=== PATIENT | male | born 1960 | race Caucasian/White ===

== ENCOUNTER → 2021-03-02 | Outpatient (CLI) | payer OTHER | LOC: WOUNDCARE 09:59 | PROVIDERS: ATTEND Surgery | DX: E11.622 Type 2 diabetes mellitus with other skin ulcer (principal); I87.331 Chronic venous hypertension (idiopathic) with ulcer and inflammation of right lower extremity; I89.0 Lymphedema, not elsewhere classified; L97.212 Non-pressure chronic ulcer of right calf with fat layer exposed; I70.232 Atherosclerosis of native arteries of right leg with ulceration of calf; E66.01 Morbid (severe) obesity due to excess calories; Z68.41 Body mass index [BMI] 40.0-44.9, adult | CPT/HCPCS: 11042; A6260; G0463 ==

== ENCOUNTER → 2021-03-06 | Outpatient (CLI) | payer OTHER ==
[2021-03-06 09:03] LABS: BASOPHILS # (AUTO) 0.1 10^3/uL (0.0-0.1); BASOPHILS % (AUTO) 1 % (0-10); EOSINOPHILS # (AUTO) 0.4 10^3/uL (0.0-0.3); EOSINOPHILS % (AUTO) 5 % (0-10); HEMATOCRIT 48 % (40-54); HEMOGLOBIN 15.8 g/dL (13.3-17.7); LYMPHOCYTES % (AUTO) 28 % (12-44); MEAN CORPUSCULAR HEMOGLOBIN 31 pg (25-34); MEAN CORPUSCULAR HGB CONC 33 g/dL (32-36); MEAN CORPUSCULAR VOLUME 92 fL (80-99); MEAN PLATELET VOLUME 9.6 fL (9.0-12.2); MONOCYTES # (AUTO) 0.5 10^3/uL (0.0-1.0); MONOCYTES % (AUTO) 7 % (0-12); NEUTROPHILS # (AUTO) 4.1 10^3/uL (1.8-7.8); NEUTROPHILS % (AUTO) 58 % (42-75); PLATELET COUNT 296 10^3/uL (130-400); WHITE BLOOD COUNT 7.1 10^3/uL (4.3-11.0)
[2021-03-06 09:30] LABS: BILIRUBIN,TOTAL 0.3 MG/DL (0.1-1.0); CALCIUM 9.9 MG/DL (8.5-10.1); CREATININE SERUM 0.75 MG/DL (0.60-1.30); TOTAL PROTEIN 7.7 GM/DL (6.4-8.2)
== END ==
LOC: LAB 08:33
PROVIDERS: ATTEND Surgery
DX: E11.622 Type 2 diabetes mellitus with other skin ulcer (principal); I87.331 Chronic venous hypertension (idiopathic) with ulcer and inflammation of right lower extremity; I89.0 Lymphedema, not elsewhere classified; L97.212 Non-pressure chronic ulcer of right calf with fat layer exposed; I70.232 Atherosclerosis of native arteries of right leg with ulceration of calf; E66.01 Morbid (severe) obesity due to excess calories
CPT/HCPCS: 36415; 80053; 83036; 85025

== ENCOUNTER → 2021-03-11 | Outpatient (CLI) | payer OTHER | LOC: WOUNDCARE 09:57 | PROVIDERS: ATTEND Surgery | DX: E11.622 Type 2 diabetes mellitus with other skin ulcer (principal); I87.331 Chronic venous hypertension (idiopathic) with ulcer and inflammation of right lower extremity; I89.0 Lymphedema, not elsewhere classified; L97.212 Non-pressure chronic ulcer of right calf with fat layer exposed; E66.01 Morbid (severe) obesity due to excess calories; E11.52 Type 2 diabetes mellitus with diabetic peripheral angiopathy with gangrene | CPT/HCPCS: 11042; A6253; G0463 ==

== ENCOUNTER → 2021-03-16 | Outpatient (CLI) | payer OTHER | LOC: WOUNDCARE 08:11 | PROVIDERS: ATTEND Surgery | DX: E11.621 Type 2 diabetes mellitus with foot ulcer (principal); I96 Gangrene, not elsewhere classified; I89.0 Lymphedema, not elsewhere classified; I10 Essential (primary) hypertension | CPT/HCPCS: 99212 ==

== ENCOUNTER → 2021-03-20 | Outpatient (CLI) | payer OTHER | LOC: WOUNDCARE 09:13 | PROVIDERS: ATTEND Surgery | DX: E11.622 Type 2 diabetes mellitus with other skin ulcer (principal); I87.331 Chronic venous hypertension (idiopathic) with ulcer and inflammation of right lower extremity; I89.0 Lymphedema, not elsewhere classified; L97.212 Non-pressure chronic ulcer of right calf with fat layer exposed; E66.01 Morbid (severe) obesity due to excess calories; E11.52 Type 2 diabetes mellitus with diabetic peripheral angiopathy with gangrene | CPT/HCPCS: 11042; G0463 ==

== ENCOUNTER → 2021-03-27 | Outpatient (CLI) | payer OTHER | LOC: WOUNDCARE 08:47 | PROVIDERS: ATTEND Surgery | DX: E11.622 Type 2 diabetes mellitus with other skin ulcer (principal); E11.52 Type 2 diabetes mellitus with diabetic peripheral angiopathy with gangrene; I87.331 Chronic venous hypertension (idiopathic) with ulcer and inflammation of right lower extremity; I89.0 Lymphedema, not elsewhere classified; L97.212 Non-pressure chronic ulcer of right calf with fat layer exposed; E66.01 Morbid (severe) obesity due to excess calories; Z68.41 Body mass index [BMI] 40.0-44.9, adult | CPT/HCPCS: 11042; G0463 ==

== ENCOUNTER → 2021-03-30 | Outpatient (CLI) | payer OTHER | LOC: WOUNDCARE 13:30 | PROVIDERS: ATTEND Family Medicine | DX: I87.331 Chronic venous hypertension (idiopathic) with ulcer and inflammation of right lower extremity (principal); E11.621 Type 2 diabetes mellitus with foot ulcer; E11.52 Type 2 diabetes mellitus with diabetic peripheral angiopathy with gangrene | CPT/HCPCS: 29581; G0463 ==

== ENCOUNTER → 2021-04-03 | Outpatient (CLI) | payer OTHER | LOC: WOUNDCARE 08:48 | PROVIDERS: ATTEND Family Medicine | DX: E11.622 Type 2 diabetes mellitus with other skin ulcer (principal); E11.52 Type 2 diabetes mellitus with diabetic peripheral angiopathy with gangrene; I87.331 Chronic venous hypertension (idiopathic) with ulcer and inflammation of right lower extremity; I89.0 Lymphedema, not elsewhere classified; L97.212 Non-pressure chronic ulcer of right calf with fat layer exposed; E66.01 Morbid (severe) obesity due to excess calories; Z68.41 Body mass index [BMI] 40.0-44.9, adult | CPT/HCPCS: 11042; G0463 ==

== ENCOUNTER → 2021-04-06 | Outpatient (CLI) | payer OTHER | LOC: WOUNDCARE 15:25 | PROVIDERS: ATTEND Family Medicine | DX: I87.331 Chronic venous hypertension (idiopathic) with ulcer and inflammation of right lower extremity (principal); E11.621 Type 2 diabetes mellitus with foot ulcer; E11.52 Type 2 diabetes mellitus with diabetic peripheral angiopathy with gangrene | CPT/HCPCS: 29581; G0463 ==

== ENCOUNTER → 2021-04-10 | Outpatient (CLI) | payer OTHER | LOC: WOUNDCARE 08:50 | PROVIDERS: ATTEND Family Medicine | DX: E11.622 Type 2 diabetes mellitus with other skin ulcer (principal); I87.331 Chronic venous hypertension (idiopathic) with ulcer and inflammation of right lower extremity; I89.0 Lymphedema, not elsewhere classified; L97.212 Non-pressure chronic ulcer of right calf with fat layer exposed; E66.01 Morbid (severe) obesity due to excess calories; E11.65 Type 2 diabetes mellitus with hyperglycemia; E11.52 Type 2 diabetes mellitus with diabetic peripheral angiopathy with gangrene | CPT/HCPCS: 11042; G0463 ==

== ENCOUNTER → 2021-04-14 | Outpatient (CLI) | payer OTHER | LOC: WOUNDCARE 14:46 | PROVIDERS: ATTEND Family Medicine | DX: I87.331 Chronic venous hypertension (idiopathic) with ulcer and inflammation of right lower extremity (principal); E11.621 Type 2 diabetes mellitus with foot ulcer; E11.52 Type 2 diabetes mellitus with diabetic peripheral angiopathy with gangrene | CPT/HCPCS: 29581; G0463 ==

== ENCOUNTER → 2021-04-17 | Outpatient (CLI) | payer OTHER | LOC: WOUNDCARE 08:54 | PROVIDERS: ATTEND Family Medicine | DX: E11.622 Type 2 diabetes mellitus with other skin ulcer (principal); E11.52 Type 2 diabetes mellitus with diabetic peripheral angiopathy with gangrene; I87.331 Chronic venous hypertension (idiopathic) with ulcer and inflammation of right lower extremity; I89.0 Lymphedema, not elsewhere classified; L97.212 Non-pressure chronic ulcer of right calf with fat layer exposed; E66.01 Morbid (severe) obesity due to excess calories; E11.65 Type 2 diabetes mellitus with hyperglycemia; Z68.41 Body mass index [BMI] 40.0-44.9, adult | CPT/HCPCS: 11042; G0463 ==

== ENCOUNTER → 2021-04-20 | Outpatient (CLI) | payer OTHER | LOC: WOUNDCARE 15:15 | PROVIDERS: ATTEND Family Medicine | DX: I87.331 Chronic venous hypertension (idiopathic) with ulcer and inflammation of right lower extremity (principal); E11.621 Type 2 diabetes mellitus with foot ulcer; E11.52 Type 2 diabetes mellitus with diabetic peripheral angiopathy with gangrene | CPT/HCPCS: 29581; G0463 ==

== ENCOUNTER → 2021-04-24 | Outpatient (CLI) | payer OTHER | LOC: WOUNDCARE 08:48 | PROVIDERS: ATTEND Family Medicine | DX: E11.622 Type 2 diabetes mellitus with other skin ulcer (principal); I87.331 Chronic venous hypertension (idiopathic) with ulcer and inflammation of right lower extremity; I89.0 Lymphedema, not elsewhere classified; L97.212 Non-pressure chronic ulcer of right calf with fat layer exposed; E66.01 Morbid (severe) obesity due to excess calories; E11.65 Type 2 diabetes mellitus with hyperglycemia; E11.52 Type 2 diabetes mellitus with diabetic peripheral angiopathy with gangrene | CPT/HCPCS: 11042; G0463 ==

== ENCOUNTER → 2021-05-01 | Outpatient (CLI) | payer OTHER | LOC: WOUNDCARE 09:06 | PROVIDERS: ATTEND Family Medicine | DX: E11.622 Type 2 diabetes mellitus with other skin ulcer (principal); I87.331 Chronic venous hypertension (idiopathic) with ulcer and inflammation of right lower extremity; I89.0 Lymphedema, not elsewhere classified; L97.212 Non-pressure chronic ulcer of right calf with fat layer exposed; E66.01 Morbid (severe) obesity due to excess calories; E11.65 Type 2 diabetes mellitus with hyperglycemia; E11.52 Type 2 diabetes mellitus with diabetic peripheral angiopathy with gangrene | CPT/HCPCS: 11042; G0463 ==

== ENCOUNTER → 2021-05-06 | Outpatient (CLI) | payer OTHER | LOC: WOUNDCARE 14:24 | PROVIDERS: ATTEND Family Medicine | DX: E11.622 Type 2 diabetes mellitus with other skin ulcer (principal); I87.331 Chronic venous hypertension (idiopathic) with ulcer and inflammation of right lower extremity; I89.0 Lymphedema, not elsewhere classified; L97.212 Non-pressure chronic ulcer of right calf with fat layer exposed; E66.01 Morbid (severe) obesity due to excess calories; E11.65 Type 2 diabetes mellitus with hyperglycemia; E11.52 Type 2 diabetes mellitus with diabetic peripheral angiopathy with gangrene | CPT/HCPCS: 11042; G0463 ==

== ENCOUNTER → 2021-05-14 | Outpatient (CLI) | payer OTHER | LOC: WOUNDCARE 08:02 | PROVIDERS: ATTEND Family Medicine | DX: I89.0 Lymphedema, not elsewhere classified (principal); E66.01 Morbid (severe) obesity due to excess calories; E11.65 Type 2 diabetes mellitus with hyperglycemia; E11.52 Type 2 diabetes mellitus with diabetic peripheral angiopathy with gangrene | CPT/HCPCS: 29581; A6197; G0463 ==

== ENCOUNTER → 2021-05-22 | Outpatient (CLI) | payer OTHER | LOC: WOUNDCARE 10:18 | PROVIDERS: ATTEND Family Medicine | DX: L91.0 Hypertrophic scar (principal) | CPT/HCPCS: 99211 ==

== ENCOUNTER 2021-11-30 21:10 | Emergency (ER) | payer OTHER ==
--- NOTE | 2021-11-30 21:19 | ED Fever ---
History of Present Illness General Stated Complaint: FEVER,BODY ACHES,CHILLS,NAUSEA History of Present Illness Date Seen by Provider: Nov 30, 2021 Time Seen by Provider: 21:14 Initial Comments 61-year-old male presents with body aches, fever, chills, severe nausea, mild occasional cough, feels like his belly is maybe little swollen. Patient reports that symptoms started today/this evening. He denies any diarrhea, sore throat. He does report some recent tick bites but no rash associated with them. He reports that he just feels pretty rough and that is why he came in. Timing/Duration: just prior to arrival Allergies and Home Medications Allergies Coded Allergies: cephalexin (Verified Allergy, Unknown, 11/30/21) Patient Home Medication List Home Medication List Reviewed: Yes Ciprofloxacin HCl (Ciprofloxacin HCl) 500 Mg Tablet, 500 MG PO BID Prescribed by: RAGHAVENDRA DAMON on 11/30/21 7783 Metronidazole (Metronidazole) 500 Mg Tablet, 500 MG PO BID Prescribed by: RAGHAVENDRA DAMON on 11/30/21 3423 Review of Systems Review of Systems Constitutional: chills; No dizziness; fever, malaise EENTM: No nose pain Respiratory: cough; No short of breath, No wheezing Cardiovascular: No chest pain, No palpitations Gastrointestinal: see HPI; No abdominal pain, No diarrhea; nausea; No vomiting Genitourinary: no symptoms reported Musculoskeletal: see HPI Skin: no symptoms reported Psychiatric/Neurological: No Symptoms Reported Physical Exam Vital Signs - First Documented 11/30/21 21:13 Temp 37.5 Pulse 122 Resp 20 B/P (MAP) 193/76 (115) Pulse Ox 90 O2 Delivery Room Air Capillary Refill : Height: '" Weight: lbs. oz. kg; BMI Method: General Appearance: mild distress, obese Eyes: Bilateral Eye Normal Inspection, Bilateral Eye PERRL HEENT: PERRL/EOMI; No pharyngeal erythema Neck: full range of motion, supple Respiratory: lungs clear, normal breath sounds Cardiovascular: normal peripheral pulses, tachycardia Gastrointestinal: non tender, soft Extremities: non-tender, normal inspection, no pedal edema Neurologic/Psychiatric: nurse charge rn II-XII nml as tested, no motor/sensory deficits, alert, normal mood/affect, oriented x 3 Skin: No rash; other (Warm to touch) Focused Exam Lactate Level 11/30/21 21:25: Lactic Acid Level 2.27*H Lactic Acid Level Laboratory Tests Test 11/30/21 21:25 Lactic Acid Level 2.27 MMOL/L (0.50-2.00) *H Progress/Results/Core Measures Suspected Sepsis SIRS Temperature: Pulse: Respiratory Rate: Laboratory Tests 11/30/21 21:25: White Blood Count 14.1H Blood Pressure / Mean: 11/30/21 21:25: Lactic Acid Level 2.27*H Laboratory Tests 11/30/21 21:25: Creatinine 0.97, Platelet Count 245, Total Bilirubin 0.3 Results/Orders Lab Results Laboratory Tests Test 11/30/21 21:19 11/30/21 21:23 11/30/21 21:25 11/30/21 22:44 Range/Units Glucometer 235 H 70-110 MG/DL Influenza Type A Antigen NEGATIVE NEGATIVE Influenza Type B Antigen NEGATIVE NEGATIVE White Blood Count 14.1 H 4.3-11.0 10^3/uL Red Blood Count 4.86 4.30-5.52 10^6/uL Hemoglobin 15.2 13.3-17.7 g/dL Hematocrit 45 40-54 % Mean Corpuscular Volume 93 80-99 fL Mean Corpuscular Hemoglobin 31 25-34 pg Mean Corpuscular Hemoglobin Concent 34 32-36 g/dL Red Cell Distribution Width 13.4 10.0-14.5 % Platelet Count 245 130-400 10^3/uL Mean Platelet Volume 10.1 9.0-12.2 fL Immature Granulocyte % (Auto) 1 % Neutrophils (%) (Auto) 86 H 42-75 % Lymphocytes (%) (Auto) 6 L 12-44 % Monocytes (%) (Auto) 5 0-12 % Eosinophils (%) (Auto) 2 0-10 % Basophils (%) (Auto) 0 0-10 % Neutrophils # (Auto) 12.2 H 1.8-7.8 10^3/uL Lymphocytes # (Auto) 0.8 L 1.0-4.0 10^3/uL Monocytes # (Auto) 0.8 0.0-1.0 10^3/uL Eosinophils # (Auto) 0.2 0.0-0.3 10^3/uL Basophils # (Auto) 0.1 0.0-0.1 10^3/uL Immature Granulocyte # (Auto) 0.1 0.0-0.1 10^3/uL Neutrophils % (Manual) 73 % Lymphocytes % (Manual) 7 % Monocytes % (Manual) 2 % Eosinophils % (Manual) 1 % Basophils % (Manual) 0 % Band Neutrophils 15 % Atypical Lymphocytes 1 % Platelet Estimate NORMAL Blood Morphology Comment NORMAL Sodium Level 139 135-145 MMOL/L Potassium Level 4.2 3.6-5.0 MMOL/L Chloride Level 103 98-107 MMOL/L Carbon Dioxide Level 24 21-32 MMOL/L Anion Gap 12 5-14 MMOL/L Blood Urea Nitrogen 28 H 7-18 MG/DL Creatinine 0.97 0.60-1.30 MG/DL Estimat Glomerular Filtration Rate 89 BUN/Creatinine Ratio 29 Glucose Level 240 H 70-105 MG/DL Lactic Acid Level 2.27 *H 0.50-2.00 MMOL/L Calcium Level 9.2 8.5-10.1 MG/DL Corrected Calcium 8.9 8.5-10.1 MG/DL Total Bilirubin 0.3 0.1-1.0 MG/DL Aspartate Amino Transf (AST/SGOT) 18 5-34 U/L Alanine Aminotransferase (ALT/SGPT) 22 0-55 U/L Alkaline Phosphatase 54 40-136 U/L C-Reactive Protein 0.33 <0.50 MG/DL Total Protein 7.4 6.4-8.2 GM/DL Albumin 4.4 3.2-4.5 GM/DL Urine Color YELLOW Urine Clarity CLEAR Urine pH 6.0 5-9 Urine Specific [place] 1.010 L 1.016-1.022 Urine Protein NEGATIVE NEGATIVE Urine Glucose (UA) 3+ H NEGATIVE Urine Ketones NEGATIVE NEGATIVE Urine Nitrite NEGATIVE NEGATIVE Urine Bilirubin NEGATIVE NEGATIVE Urine Urobilinogen 0.2 < = 1.0 MG/DL Urine Leukocyte Esterase NEGATIVE NEGATIVE Urine RBC (Auto) NEGATIVE NEGATIVE Urine RBC NONE /HPF Urine WBC 2-5 /HPF Urine Squamous Epithelial Cells RARE /HPF Urine Crystals NONE /LPF Urine Bacteria NEGATIVE /HPF Urine Casts NONE /LPF Urine Mucus NEGATIVE /LPF Urine Culture Indicated NO My Orders Orders - DAMON,RAGHAVENDRA L DO Cbc With Automated Diff (11/30/21 21:20) Comprehensive Metabolic Panel (11/30/21 21:20) Lactic Acid Analyzer (11/30/21 21:20) Procalcitonin (Pct) (11/30/21 21:20) Ua Culture If Indicated (11/30/21 21:20) Blood Culture (11/30/21 21:20) Crp Fs (11/30/21 21:20) Covid 19 Inhouse Test (11/30/21 21:20) Acute Abd Series (11/30/21 21:20) Ondansetron Injection (Zofran Injectio (11/30/21 21:30) Ns Iv 1000 Ml (Sodium Chloride 0.9%) (11/30/21 21:20) Ed Iv/Invasive Line Start (11/30/21 21:30) Influenza A & B Antigens (11/30/21 21:35) Manual Differential (11/30/21 21:25) Iohexol Injection (Omnipaque 350 Mg/Ml 1 (11/30/21 22:30) Received Contrast (Hold Metformin- Contr (11/30/21 22:30) Ns (Ivpb) (Sodium Chloride 0.9% Ivpb Bag (11/30/21 22:30) Ct [place] Chest/Noang Abd-Pelv W (11/30/21 22:17) Meropenem (Merrem 500 Mg) (11/30/21 22:30) Medications Given in ED Current Medications Medications Dose Ordered Sig/Silvia Route Start Time Stop Time Status Last Admin Dose Admin Iohexol 125 ml ONCE ONCE IV 11/30/21 22:30 11/30/21 22:31 DC 11/30/21 22:27 125 ML Meropenem 500 mg/ Sodium Chloride 100 ml @ 200 mls/hr ONCE ONCE IV 11/30/21 22:30 11/30/21 22:59 DC 11/30/21 22:41 200 MLS/HR Ondansetron HCl 4 mg ONCE ONCE IVP 11/30/21 21:30 11/30/21 21:31 DC 11/30/21 21:31 4 MG Sodium Chloride 100 ml ONCE ONCE IV 11/30/21 22:30 11/30/21 22:31 DC 11/30/21 22:27 100 ML Vital Signs/I&O 11/30/21 11/30/21 21:13 23:30 Temp 37.5 Pulse 122 124 Resp 20 24 B/P (MAP) 193/76 (115) 186/64 Pulse Ox 90 90 O2 Delivery Room Air Room Air Capillary Refill : Progress Note : Progress Note Patient with no acute findings on CTA. Patient oxygen is in the upper 80s lower 90s which I suspect is likely his baseline due to probable pickwickian or pulmonary hypertension. Patient with elevated white count slight elevated lactic. Patient is tachycardic which I also suspect is baseline. I discussed with patient that I would like to admit him into the hospital for further work- up and evaluation. However patient declined admission. Patient understands that he may worsen and could become more sick and possibly even . I did discuss with him that I did not agree with his decision however I will honor it. Patient voices understanding and still wanted to be discharged. Patient will be discharged with Levaquin and Flagyl due to finding of enteritis on his CT exam. I did have a long discussion with him regarding his extremely large liver CT findings. Patient states that he will follow-up with Dr. Burgos in the morning first thing. Patient was stable upon being discharged home at his request. Departure Impression Primary Impression: Enteritis Additional Impressions: Tachycardia Fatty liver Disposition: HOME, SELF-CARE Condition: Stable Departure-Patient Inst. Referrals: DAYNA BURGOS MD (PCP/Family) Primary Care Physician Patient Instructions: Tachycardia, Colitis Add. Discharge Instructions: Return to the ER with worsening condition or any concerns Please be sure to follow-up with Dr. Burgos first thing in the morning Scripts Metronidazole (Metronidazole) 500 Mg Tablet 500 MG PO BID, #14 TAB 0 Refills Prov: RAGHAVENDRA DAMON DO 11/30/21 Ciprofloxacin HCl (Ciprofloxacin HCl) 500 Mg Tablet 500 MG PO BID, #14 TAB Prov: RAGHAVENDRA DAMON DO 11/30/21 RAGHAVENDRA DAMON DO Nov 30, 2021 21:19
[2021-11-30] MEDS ORDERED: NS IV 1000 ML 1,000 ML IV STA (21:20)
[2021-11-30] MEDS ORDERED: ONDANSETRON 4 MG/2 ML (SDV) Z0FRAN IVP ONE (21:30)
[2021-11-30 21:39] LABS: BASOPHILS # (AUTO) 0.1 10^3/uL (0.0-0.1); BASOPHILS % (AUTO) 0 % (0-10); EOSINOPHILS # (AUTO) 0.2 10^3/uL (0.0-0.3); EOSINOPHILS % (AUTO) 2 % (0-10); HEMATOCRIT 45 % (40-54); HEMOGLOBIN 15.2 g/dL (13.3-17.7); LYMPHOCYTES # (AUTO) 0.8 10^3/uL (1.0-4.0); LYMPHOCYTES % (AUTO) 6 % (12-44); MEAN CORPUSCULAR HEMOGLOBIN 31 pg (25-34); MEAN CORPUSCULAR HGB CONC 34 g/dL (32-36); MEAN CORPUSCULAR VOLUME 93 fL (80-99); MEAN PLATELET VOLUME 10.1 fL (9.0-12.2); MONOCYTES # (AUTO) 0.8 10^3/uL (0.0-1.0); MONOCYTES % (AUTO) 5 % (0-12); NEUTROPHILS # (AUTO) 12.2 10^3/uL (1.8-7.8); NEUTROPHILS % (AUTO) 86 % (42-75); PLATELET COUNT 245 10^3/uL (130-400); WHITE BLOOD COUNT 14.1 10^3/uL (4.3-11.0)
[2021-11-30 22:01] LABS: BILIRUBIN,TOTAL 0.3 MG/DL (0.1-1.0); CALCIUM 9.2 MG/DL (8.5-10.1); CREATININE SERUM 0.97 MG/DL (0.60-1.30); POTASSIUM 4.2 MMOL/L (3.6-5.0)
[2021-11-30 22:02] LABS: ALBUMIN 4.4 GM/DL (3.2-4.5); TOTAL PROTEIN 7.4 GM/DL (6.4-8.2)
[2021-11-30 22:03] LABS: BAND NEUTROPHILS 15 %; BASOPHILS % (MANUAL) 0 %; EOSINOPHILS % (MANUAL) 1 %; LYMPHOCYTES % (MANUAL) 7 %; MONOCYTES % (MANUAL) 2 %; NEUTROPHILS % (MANUAL) 73 %
--- NOTE | 2021-11-30 22:03 | Diagnostic Imaging Report ---
INDICATION: Fever and cough with abdominal pain. EXAMINATION: Acute abdominal series 11/30/2021 FINDINGS: Heart and pulmonary vasculature normal. Lungs and pleural spaces clear. There is no free air beneath diaphragm. No dilated loops of bowel. There are findings of [id number] constipation. IMPRESSION: 1. Negative chest. 2. Nonobstructive bowel gas pattern. Dictated by: Dictated on workstation # [id number]
[2021-11-30 22:04] LABS: ATYPICAL LYMPHOCYTES 1 %; PLATELET ESTIMATE NORMAL; RBC MORPH NORMAL
[2021-11-30] MEDS ORDERED: NS 100 ML (IVPB) BAG IV ONE (22:30)
[2021-11-30] MEDS ORDERED: IOHEXOL 350 MG/ML 150 ML (OMNIPAQUE 350) VIAL IV ONE (22:30)
[2021-11-30] MEDS ORDERED: HOLD METFORMIN - RECEIVED CONTRAST 20 ML VIAL IV SCH (22:30)
[2021-11-30] MEDS ORDERED: MEROPENEM 500 MG in NS (IVPB) 100 ML IV ONE (22:30)
[2021-11-30 22:50] LABS: BILIRUBIN,URINE NEGATIVE (NEGATIVE); CLARITY,URINE CLEAR; COLOR,URINE YELLOW; GLUCOSE, URINE (UA) 3+ (NEGATIVE); KETONES,URINE NEGATIVE (NEGATIVE); LEUKOCYTE ESTERASE ,URINE NEGATIVE (NEGATIVE); NITRITE,URINE NEGATIVE (NEGATIVE); PROTEIN,URINE NEGATIVE (NEGATIVE)
[2021-11-30 23:00] LABS: BACTERIA,URINE NEGATIVE /HPF
[2021-11-30 23:01] LABS: SQUAMOUS EPITHELIAL CELL,UR RARE /HPF
--- NOTE | 2021-11-30 23:18 | Diagnostic Imaging Report ---
CTA chest, abdomen and pelvis Thin axial sections through the chest, abdomen and pelvis are obtained following intravenous contrast bolus. Multiplanar MIP images were reconstructed and reviewed. All CT scans use one or more of the following dose optimizing techniques: automated exposure control, MA and/or KvP adjustment based on patient size and exam type or iterative reconstruction. INDICATION: Fever, abdominal pain, and shortness of air. EXAMINATION: CTA of the chest with a CT abdomen and pelvis with contrast 11/30/2021 FINDINGS: CHEST: There are no central or proximal segmental pulmonary emboli. There is atherosclerotic disease within the aorta. There are no pericardial or pleural effusions. There is scattered scar or atelectasis in the lungs with no acute abnormality appreciated. There is no acute osseous abnormality. IMPRESSION: 1. No central or proximal segmental pulmonary emboli with no acute process seen in the chest. CT abdomen and pelvis: There is diffuse hepatomegaly with fatty infiltration noted. Spleen is normal. Gallbladder unremarkable. Pancreas and adrenal glands unremarkable. Subcentimeter hypodensities noted within the right kidney. Kidneys otherwise normal with no hydronephrosis appreciated. There is diffuse atherosclerotic disease. There is fat stranding within the anterior abdominal subcutaneous soft tissues nonspecific, perhaps due to focal edema with an inflammatory process not excluded. No abscess is appreciated. There is a nonobstructive bowel gas pattern. However, there is mild wall thickening and prominence of the proximal small bowel loops perhaps due to an enteritis. The appendix is normal. Prostate gland slightly prominent with hypodensity along the posterior aspect of the urinary bladder likely caused by impression upon the bladder by the prostate gland. An underlying mass less likely but difficult to exclude. There are degenerative changes within the osseous structures. There is a bulging disc partially calcified at L4-L5 causing at least moderate if not severe central stenosis. IMPRESSION: 1. Hepatomegaly and hepatic steatosis. 2. Findings suspicious for enteritis. 3. Nonspecific fat stranding within the anterior abdominal wall subcutaneous soft tissues. 4. Prominent prostate gland which impresses upon the posterior aspect of the urinary bladder with a bladder mass less likely but not excluded. Other incidental findings as above. Dictated by: Dictated on workstation # [id number]
[2021-11-30 23:30] VITALS: BP 186/64
[2021-11-30] MEDS ORDERED: CIPR500T5 PO (23:33)
[2021-11-30] MEDS ORDERED: METR-145 PO (23:33)
== END 2021-11-30 23:37 | disposition home or self-care (01) ==
LOC: EDUNIT# 21:10 → ER FS 21:11
DX: K52.9 Noninfective gastroenteritis and colitis, unspecified (principal); K76.0 Fatty (change of) liver, not elsewhere classified; R00.0 Tachycardia, unspecified; D72.829 Elevated white blood cell count, unspecified; R74.02 Elevation of levels of lactic acid dehydrogenase [LDH]; Z20.822 Contact with and (suspected) exposure to COVID-19
CPT/HCPCS: 36415; 71275; 74022; 74177; 80053; 81000; 82947; 83605; 84145; 85007; 85027; 86141; 87040; 87636; 87804; Q9967

== ENCOUNTER 2021-12-03 07:17 | Emergency (ER) | payer OTHER ==
[~2021-12-03 07:17] MED LIST: CIPR500T5 PO; METR-145 PO
[2021-12-03] MEDS ORDERED: NS IV 1000 ML 1,000 ML IV SCH (07:45)
[2021-12-03] MEDS ORDERED: PIPERACILLIN SODIUM/TAZOBACTAM 4.5 GM in NS (IVPB) 100 ML IV ONE (07:45)
[2021-12-03 07:48] LABS: BASOPHILS % (AUTO) 1 % (0-10); EOSINOPHILS # (AUTO) 0.2 10^3/uL (0.0-0.3); EOSINOPHILS % (AUTO) 3 % (0-10); HEMATOCRIT 43 % (40-54); HEMOGLOBIN 14.1 g/dL (13.3-17.7); LYMPHOCYTES # (AUTO) 1.3 10^3/uL (1.0-4.0); LYMPHOCYTES % (AUTO) 18 % (12-44); MEAN CORPUSCULAR HEMOGLOBIN 31 pg (25-34); MEAN CORPUSCULAR HGB CONC 33 g/dL (32-36); MEAN CORPUSCULAR VOLUME 93 fL (80-99); MEAN PLATELET VOLUME 9.8 fL (9.0-12.2); MONOCYTES # (AUTO) 0.7 10^3/uL (0.0-1.0); MONOCYTES % (AUTO) 9 % (0-12); NEUTROPHILS # (AUTO) 5.2 10^3/uL (1.8-7.8); NEUTROPHILS % (AUTO) 70 % (42-75); PLATELET COUNT 219 10^3/uL (130-400); WHITE BLOOD COUNT 7.5 10^3/uL (4.3-11.0)
--- NOTE | 2021-12-03 07:48 | ED Lower Extremity ---
General Chief Complaint: Lower Extremity Stated Complaint: L LEG WOUND Source: patient Exam Limitations: no limitations History of Present Illness Date Seen by Provider: Dec 03, 2021 Time Seen by Provider: 07:29 Initial Comments The patient presents to the ER by private conveyance from home with chief complaint that the last day he has noticed some increasing redness swelling warmth in his left lower extremity circumferential. He had a wound that has been working on slowly healing up on the anterior wallace proximally on the left side after striking his wallace against something outside. He is a type II diabetic with hypertension. He has been on Cipro and Flagyl since Tuesday, 4 days ago when he came in with some generalized body aches sweats nausea but no diarrhea. They thought he might of had a got infection. Blood cultures were drawn and all 4 grew out group B strep on preliminary culture. He has been taking the antibiotics without issue and no longer had any fever since his initial 1 on Tuesday 102.3. He says he is prone to getting cellulitis and has had it several times in his right leg. He states he has an allergy to cephalexin but then says is because they gave it to him as an IV infusion and it caused a rash all over his body. Bowels have been moving normally. No stomachache. Occasional nausea but not bad enough to take anything for it. He is eating and drinking normally. He has an appointment in a week with Dr. Burgos his PCP. Other than using marijuana decades ago the patient denies using any IV drugs of abuse. Patient was seen earlier in the week and found to have some mild fat stranding in the anterior abdominal compartment concerning for enteritis. He was having nausea and malaise and did report some tick bites but did not have any rashes at that time. There is meeting septic criteria however because of his pickwickian state it was felt that some of that contributed to his symptoms and presentation. Patient was encouraged to go in the hospital at that time but declined stating he would prefer outpatient treatment. COVID and flu were negative. No tick panel was collected. Allergies and Home Medications Allergies Coded Allergies: cephalexin (Verified Allergy, Unknown, 11/30/21) Patient Home Medication List Home Medication List Reviewed: Yes Ciprofloxacin HCl (Ciprofloxacin HCl) 500 Mg Tablet, 500 MG PO BID Prescribed by: RAGHAVENDRA DAMON on 11/30/21 1328 Metronidazole (Metronidazole) 500 Mg Tablet, 500 MG PO BID Prescribed by: RAGHAVENDRA DAMON on 11/30/21 3457 Review of Systems Constitutional: No chills, No fever; malaise EENTM: No ear discharge, No ear pain Respiratory: No cough, No short of breath Cardiovascular: No chest pain, No edema Gastrointestinal: No abdominal pain, No nausea Genitourinary: No discharge, No dysuria Musculoskeletal: No back pain, No joint pain Skin: see HPI, change in color, rash All Other Systems Reviewed Negative Unless Noted: Yes Past Ubemucp-Ddezfg-Saiiff Hx Patient Social History Tobacco Use?: No Tobacco type used: Cigarettes Smoking Status: Former Smoker (Quit 5 years ago) Use of E-Cig and/or Vaping dev: No Substance use?: No Alcohol Use?: No Physical Exam Vital Signs Vital Signs - First Documented 12/03/21 07:25 Temp 36.1 Pulse 89 Resp 18 B/P (MAP) 158/73 (101) Pulse Ox 94 O2 Delivery Room Air Capillary Refill : Height, Weight, BMI Height: '" Weight: lbs. oz. kg; BMI Method: General Appearance: WD/WN, no apparent distress HEENT: PERRL/EOMI, pharynx normal Neck: full range of motion, normal inspection Cardiovascular: normal peripheral pulses, regular rate, rhythm Respiratory: lungs clear, normal breath sounds, no respiratory distress, no accessory muscle use Gastrointestinal: normal bowel sounds (Quiescent), non tender, soft, no organomegaly Legs: right leg non-tender, right leg normal inspection; bilateral leg normal range of motion; right leg no evidence of injury; left leg pain, left leg soft tissue tenderness (Left lower extremity), left leg swelling (Mild), left leg other (Erythematous warmth with a small anterior wound proximal tibia that is healing) Knees: bilateral knee non-tender, bilateral knee normal inspection, bilateral knee normal range of motion, bilateral knee no evidence of injury Feet: bilateral foot non-tender, bilateral foot normal inspection, bilateral foot normal range of motion, bilateral foot no evidence of injury Neurologic/Tendon: normal sensation, normal motor functions, normal tendon functions, responds to pain Neurologic/Psychiatric: alert, normal mood/affect, oriented x 3 Skin: warm/dry, rash (Left lower extremity dolor, calor, rubor) Progress/Results/Core Measures Results/Orders Lab Results Laboratory Tests Test 12/03/21 07:40 12/03/21 08:00 Range/Units White Blood Count 7.5 4.3-11.0 10^3/uL Red Blood Count 4.62 4.30-5.52 10^6/uL Hemoglobin 14.1 13.3-17.7 g/dL Hematocrit 43 40-54 % Mean Corpuscular Volume 93 80-99 fL Mean Corpuscular Hemoglobin 31 25-34 pg Mean Corpuscular Hemoglobin Concent 33 32-36 g/dL Red Cell Distribution Width 13.4 10.0-14.5 % Platelet Count 219 130-400 10^3/uL Mean Platelet Volume 9.8 9.0-12.2 fL Immature Granulocyte % (Auto) 1 % Neutrophils (%) (Auto) 70 42-75 % Lymphocytes (%) (Auto) 18 12-44 % Monocytes (%) (Auto) 9 0-12 % Eosinophils (%) (Auto) 3 0-10 % Basophils (%) (Auto) 1 0-10 % Neutrophils # (Auto) 5.2 1.8-7.8 10^3/uL Lymphocytes # (Auto) 1.3 1.0-4.0 10^3/uL Monocytes # (Auto) 0.7 0.0-1.0 10^3/uL Eosinophils # (Auto) 0.2 0.0-0.3 10^3/uL Basophils # (Auto) 0.0 0.0-0.1 10^3/uL Immature Granulocyte # (Auto) 0.1 0.0-0.1 10^3/uL Sodium Level 142 135-145 MMOL/L Potassium Level 3.6 3.6-5.0 MMOL/L Chloride Level 104 98-107 MMOL/L Carbon Dioxide Level 26 21-32 MMOL/L Anion Gap 12 5-14 MMOL/L Blood Urea Nitrogen 17 7-18 MG/DL Creatinine 0.78 0.60-1.30 MG/DL Estimat Glomerular Filtration Rate 101 BUN/Creatinine Ratio 22 Glucose Level 148 H 70-105 MG/DL Calcium Level 9.1 8.5-10.1 MG/DL Corrected Calcium 9.3 8.5-10.1 MG/DL Total Bilirubin 0.2 0.1-1.0 MG/DL Aspartate Amino Transf (AST/SGOT) 22 5-34 U/L Alanine Aminotransferase (ALT/SGPT) 23 0-55 U/L Alkaline Phosphatase 51 40-136 U/L C-Reactive Protein 7.22 H <0.50 MG/DL Total Protein 6.9 6.4-8.2 GM/DL Albumin 3.7 3.2-4.5 GM/DL Prothrombin Time 13.3 12.2-14.7 SEC INR Comment 1.0 0.8-1.4 My Orders Orders - ADAM CALERO Ed Iv/Invasive Line Start (12/03/21 07:37) Ns Iv 1000 Ml (Sodium Chloride 0.9%) (12/03/21 07:45) Piperacillin Sodium/Tazobactam (Zosyn Vi (12/03/21 07:45) Cbc With Automated Diff (12/03/21 07:37) Comprehensive Metabolic Panel (12/03/21 07:37) Crp Fs (12/03/21 07:37) Blood Culture (12/03/21 07:37) Protime With Inr (12/03/21 07:37) Chest 1 View Ap/Pa Only (12/03/21 07:40) Medications Given in ED Current Medications Medications Dose Ordered Sig/Silvia Route Start Time Stop Time Status Last Admin Dose Admin Piperacillin Sod/ Tazobactam Sod 4.5 gm/Sodium Chloride 100 ml @ 200 mls/hr ONCE ONCE IV 12/03/21 07:45 12/03/21 08:14 DC 12/03/21 08:10 200 MLS/HR Vital Signs/I&O 12/03/21 07:25 Temp 36.1 Pulse 89 Resp 18 B/P (MAP) 158/73 (101) Pulse Ox 94 O2 Delivery Room Air Progress Progress Note #1: Time: 07:46 Progress Note There is a small wound that is probably the source of his cellulitis of his left lower extremity. This was not noticed by the previous provider nor the patient at the time of his presentation earlier in the week when he was diagnosed with a nonspecific GI infection. Despite Cipro and Flagyl his cellulitis has flared. We will give him Zosyn since it is unclear which cephalosporin generation he actually has an allergy to. It is probably not cephalexin since that his p.o. source only. It could be Ancef first generation, Rocephin third-generation or possibly even cefepime fourth-generation. He presents without any septic vital signs. No recent fever. He may be amenable to outpatient treatment for putting on the right antibiotic but given his history of diabetes, overt cellulitis, continued nausea and bacteremia it may be rubio to at least keep him in the hospital for a day for observation and finish growing out the antibiotic susceptibility on the cultures. We will give him a liter of fluids and check labs but even if he has a elevated white count he does not meet sepsis criteria. With no history of IV drugs of abuse and infective endocarditis is less likely as a source of his bacteremia. The fact that he has frequent cellulitis in his legs is probably due to the fact that he had a large poorly healing wound over the past couple years on the right lower extremity plus his diabetes. Progress Note #2: Time: 08:49 Progress Note Discussed the bacteremia and discussed the need to follow the cultures and make sure that nothing else grows out. We did offer the patient an opportunity to stay in the hospital overnight to follow the cultures and do some IV antibiotics until we can put him out on something. Since we have a preliminary group B strep which is typically easily treated with second-generation cephalosporins were going to put him on Keflex. The patient states he thinks he is taking Keflex before and done well with it. We did offer him an opportunity to stay in the hospital which he declined stating he would much prefer to do outpatient therapy. His vitals are normal, he feels well and his lab work is largely unremarkable. Strict return precautions were given and the patient acknowledged the importance of returning the ER if he starts feeling worse. He has an appointment next week with Dr. Burgos. Diagnostic Imaging Diagonstic Imaging: Xray Plain Films/CT/US/NM/MRI: chest Comments [facility] [place], [place] NAME: LUDMILA BUTTERFIELD [facility] REC#: [id number] PT STATUS: REG ER : 1960 PHYSICIAN: ADAM CALERO MD ADMIT DATE: 12/03/21/ER FS Draft Date of Exam:12/03/21 CHEST 1 VIEW AP/PA ONLY INDICATION: Lower leg swelling, redness. It is compared with study 11/30/2021. FINDINGS: The heart is enlarged, increased from prior. There is some mild prominence of the central vascularity. No dmitry edema, however. No pneumonia, effusion or pneumothorax. IMPRESSION: Upper limits heart size and venous caliber but no dmitry edema, pleural pathology or focal pneumonia. Dictated on workstation # [id number] Dict: 12/03/21 0751 Trans: 12/03/21 0759 MARY [id number] Interpreted by: ARRON CHAPA Electronically signed by: Reviewed: Reviewed by Me Departure Impression Primary Impression: Cellulitis Qualified Codes: L03.116 - Cellulitis of left lower limb Additional Impression: Bacteremia due to group B Streptococcus Disposition: HOME, SELF-CARE Condition: Stable Departure-Patient Inst. Decision time for Depature: 08:51 Referrals: DAYNA BURGOS MD (PCP/Family) Primary Care Physician Patient Instructions: Cellulitis (Skin Infection), Adult ED Add. Discharge Instructions: You have an infection in your leg which is probably the source of the bacteria in your bloodstream. Will put you on cephalexin to be taken 4 times a day for 14 days. While you are on this many antibiotics you should also be taking probiotics twice a day to recede they got with normal bacteria. You can stop taking the other antibiotics. Follow-up next week with your primary care provider for recheck. If anytime you are having worsening symptoms such as fever, intractable nausea and vomiting, dehydration or severe pain then please return to the ER promptly for reexamination. Ondansetron 1 tablet every 6 hours as needed for nausea. All discharge instructions reviewed with patient and/or family. Voiced understanding. Scripts Cephalexin (Cephalexin) 500 Mg Tablet 500 MG PO QID for 14 Days, #56 TAB 0 Refills Prov: ADAM CALERO 12/03/21 Ondansetron (Ondansetron Odt) 4 Mg Tab.rapdis 4 MG PO Q6H PRN for NAUSEA/VOMITING, #8 TAB 0 Refills Prov: ADAM CALERO 12/03/21 Copy Copies To 1: DAYNA BURGOS MD, TITUS J Dec 03, 2021 07:48
--- NOTE | 2021-12-03 07:59 | Diagnostic Imaging Report ---
INDICATION: Lower leg swelling, redness. It is compared with study 11/30/2021. FINDINGS: The heart is enlarged, increased from prior. There is some mild prominence of the central vascularity. No dmitry edema, however. No pneumonia, effusion or pneumothorax. IMPRESSION: Upper limits heart size and venous caliber but no dmitry edema, pleural pathology or focal pneumonia. Dictated by: Dictated on workstation # [id number]
[2021-12-03 08:11] LABS: BILIRUBIN,TOTAL 0.2 MG/DL (0.1-1.0); CALCIUM 9.1 MG/DL (8.5-10.1); CREATININE SERUM 0.78 MG/DL (0.60-1.30); POTASSIUM 3.6 MMOL/L (3.6-5.0); TOTAL PROTEIN 6.9 GM/DL (6.4-8.2)
[2021-12-03 08:12] LABS: ALBUMIN 3.7 GM/DL (3.2-4.5)
[2021-12-03 08:23] LABS: PROTHROMBIN TIME PATIENT 13.3 SEC (12.2-14.7)
[2021-12-03] MEDS ORDERED: ONDA4TAB11 PO (08:55)
[2021-12-03] MEDS ORDERED: CEPH500T PO (08:55)
[2021-12-03 08:57] VITALS: BP 124/73
== END 2021-12-03 08:57 | disposition home or self-care (01) ==
LOC: EDUNIT# 07:17 → ER FS 07:21
DX: L03.116 Cellulitis of left lower limb (principal); R78.81 Bacteremia; B95.1 Streptococcus, group B, as the cause of diseases classified elsewhere; Z87.891 Personal history of nicotine dependence
CPT/HCPCS: 36415; 71045; 80053; 85025; 85610; 86141; 87040

== ENCOUNTER → 2022-08-23 | Outpatient (CLI) | payer OTHER ==
[~2022-08-23] MED LIST changes: +CATHETER FLUSH 10 ML SYR IVP PRN; +CEPH500T PO; +ONDA4TAB11 PO
--- NOTE | 2022-08-23 13:10 | Diagnostic Imaging Report ---
INDICATION: Right upper quadrant pain increasing over the last 3 months. TECHNIQUE: The patient was administered 5.1 mCi of technetium 99m Choletec intravenously and imaging over the abdomen was performed. At 45 minutes, the patient ingested 8 ounces of Ensure and a gallbladder ejection fraction was calculated. FINDINGS: There is homogeneous uptake of activity by the liver with prompt excretion of activity into the gallbladder and common duct. There is normal passage of activity into the small bowel. There is some gastric bile reflux present. The gallbladder ejection fraction is lower limits of normal at 34%. IMPRESSION: 1. Patent cystic duct and common bile duct. 2. Gastric bile reflux. 3. Lower limits of normal gallbladder ejection fraction of 34%. Dictated by: Dictated on workstation # [id number]
== END ==
LOC: CARD 09:29
PROVIDERS: ATTEND Registered Nurse Emergency
DX: K21.9 Gastro-esophageal reflux disease without esophagitis (principal)
CPT/HCPCS: 78227; A9537

== ENCOUNTER → 2022-11-19 | Outpatient (CLI) | payer OTHER ==
[~2022-11-19] MED LIST changes: -CATHETER FLUSH 10 ML SYR IVP PRN
--- NOTE | 2022-11-19 12:53 | Diagnostic Imaging Report ---
INDICATION: Left knee pain. AP, oblique, and lateral views left knee are obtained. No fracture or acute bony abnormality seen. There is mild superior patellar spurring. No definite joint effusion seen. The medial and lateral compartments appear preserved. IMPRESSION: Mild superior patellar spurring. No acute fracture or overt joint effusion. Dictated by: Dictated on workstation # [id number]
== END ==
LOC: RAD FS 10:18
PROVIDERS: ATTEND Registered Nurse Emergency
DX: M76.52 Patellar tendinitis, left knee (principal); M25.462 Effusion, left knee
CPT/HCPCS: 73562